=== PATIENT | male | born 1995 | race Hispanic/Latino ===

== ENCOUNTER 2018-06-15 00:33 | Emergency (ER) | payer OTHER ==
[2018-06-15] MEDS ORDERED: Lidocaine 1% w/Epinephrine 1:100K 20 ML VIAL ONE (01:13)
[2018-06-15] MEDS ORDERED: Adacel (T-DAP) 0.5 ML VIAL ONE (01:46)
== END 2018-06-15 02:10 | disposition home or self-care (01) ==
LOC: SCSER 00:33
DX: S01.512A Laceration without foreign body of oral cavity, initial encounter (principal); Z23 Encounter for immunization; W01.198A Fall on same level from slipping, tripping and stumbling with subsequent striking against other object, initial encounter
CPT/HCPCS: 12011; 90471; 90715; J2001